=== PATIENT | female | born 1955 | race Caucasian/White ===

== ENCOUNTER 2016-03-16 00:53 | Emergency (ER) | payer MEDICARE ==
[2016-03-16] MEDS ORDERED: OXYCODONE HCL 5 MG TABLET ONE (01:19)
== END 2016-03-16 01:40 | disposition home or self-care (01) ==
LOC: ED 00:53
DX: M25.561 Pain in right knee (principal); G89.29 Other chronic pain
CPT/HCPCS: 99282; 99283; A9270

== ENCOUNTER 2016-03-18 03:14 | Emergency (ER) | payer MEDICARE ==
[2016-03-18 04:48] LABS: ALB/GLOB RATIO 1.1 (>1.0); ALBUMIN 3.3 gm/dL (3.5-5.7); CALCIUM 8.8 mg/dL (8.6-10.3)
[2016-03-18 04:49] LABS: ABSOLUTE NEUTROPHIL COUNT 5.5 K/mm3 (1.8-7.7); BASO % 0.5 % (0.2-1.0); EOS # 0.2 (0.0-0.5); EOS % 1.8 % (0.9-2.9); HEMATOCRIT 35.5 % (37.0-47.0); HEMOGLOBIN 10.9 gm/l (12.0-16.0); IMM NEUT # 0.2 K/mm3 (0-0.2); IMM NEUT% 2.2 % (0-1); LYMPH # 2.2 (1.0-4.8); LYMPH % 24.7 % (15-45); MEAN CELL VOLUME 88.1 fl (81.0-99.0); MEAN CORPUSCULAR HGB CONC 30.7 g/dl (33.0-37.0); MEAN PLATELET VOLUME 10.2 fl (7.4-10.4); MONO # 0.6 (0.0-0.8); NEUT % 63.8 % (43-75); PLATELET COUNT 223 K/mm3 (130-400); RED CELL DISTRIBUTION WIDTH 18.1 % (11.5-14.5)
[2016-03-18] MEDS ORDERED: FUROSEMIDE 40 MG/4 ML VIAL ONE (04:55)
[2016-03-18] MEDS ORDERED: FUROSEMIDE 20 MG/2 ML VIAL ONE (04:57)
--- NOTE | 2016-03-18 07:21 | RAD ---
EXAMINATION:CHEST - 2 VIEWS CLINICAL INDICATION: Difficulty breathing. Asthma. Inhalers not working. COMPARISON: 02/20/2016 FINDINGS: The cardiomediastinal silhouette is unaltered from the prior study. There is no adenopathy identified. There is no pleural effusion. Prominent bronchovascular markings are again noted. Basilar atelectasis is unchanged. The osseous structures are unremarkable for age. IMPRESSION: Stable senescent changes and basilar atelectasis with very vascular congestion. No superimposed acute process is identified in comparison to 02/20/2016.
== END 2016-03-18 06:09 | disposition home or self-care (01) ==
LOC: ED 03:14
DX: R06.00 Dyspnea, unspecified (principal); I50.9 Heart failure, unspecified; I25.10 Atherosclerotic heart disease of native coronary artery without angina pectoris; E11.9 Type 2 diabetes mellitus without complications; E03.9 Hypothyroidism, unspecified; Z79.4 Long term (current) use of insulin
CPT/HCPCS: 83880; 85379; 85025; 80053; 84484; 71020; 96375; 99283 ×2; 36415; 93005; J1940 ×2

== ENCOUNTER 2016-03-23 08:08 | Outpatient (CLI) | payer MEDICARE | END 2016-03-23 08:09 | disposition home or self-care (01) | LOC: NC 08:08 | PROVIDERS: ATTEND Nurse Practitioner Family | DX: E11.65 Type 2 diabetes mellitus with hyperglycemia (principal); Z71.3 Dietary counseling and surveillance; Z68.42 Body mass index [BMI] 45.0-49.9, adult ==

== ENCOUNTER 2016-03-29 06:04 | Emergency (ER) | payer MEDICARE ==
[2016-03-29] MEDS ORDERED: ALBUTEROL/IPRATROPIUM 2.5/0.5 MG 3 ML/EACH DOSE ONE (06:31)
== END 2016-03-29 07:01 | disposition home or self-care (01) ==
LOC: ED 06:04
DX: G47.30 Sleep apnea, unspecified (principal); R06.02 Shortness of breath; E11.65 Type 2 diabetes mellitus with hyperglycemia; E78.2 Mixed hyperlipidemia; I10 Essential (primary) hypertension; Z71.3 Dietary counseling and surveillance; Z68.42 Body mass index [BMI] 45.0-49.9, adult
CPT/HCPCS: 83880; 80048; 36415; 94640; 99283 ×2; G0109

== ENCOUNTER 2016-03-29 17:30 | Outpatient (CLI) | payer MEDICARE | END 2016-03-29 17:31 | disposition home or self-care (01) | LOC: NC 17:30 | PROVIDERS: ATTEND Nurse Practitioner Family | DX: E11.65 Type 2 diabetes mellitus with hyperglycemia (principal); Z71.3 Dietary counseling and surveillance; Z68.42 Body mass index [BMI] 45.0-49.9, adult ==

== ENCOUNTER 2016-04-03 17:03 | Emergency (ER) | payer MEDICARE | END 2016-04-03 19:44 | disposition home or self-care (01) | LOC: ED 17:03 | DX: G89.29 Other chronic pain (principal); M25.561 Pain in right knee; E66.9 Obesity, unspecified; Z86.718 Personal history of other venous thrombosis and embolism; I25.10 Atherosclerotic heart disease of native coronary artery without angina pectoris; E11.9 Type 2 diabetes mellitus without complications; I50.9 Heart failure, unspecified; E03.9 Hypothyroidism, unspecified; Z79.899 Other long term (current) drug therapy ==

== ENCOUNTER 2016-04-05 17:30 | Outpatient (CLI) | payer MEDICARE | END 2016-04-05 17:31 | disposition home or self-care (01) | LOC: NC 17:30 | PROVIDERS: ATTEND Nurse Practitioner Family | DX: E11.65 Type 2 diabetes mellitus with hyperglycemia (principal) ==

== ENCOUNTER 2016-04-12 17:30 | Outpatient (CLI) | payer MEDICARE | END 2016-04-12 17:31 | disposition home or self-care (01) | LOC: NC 17:30 | PROVIDERS: ATTEND Nurse Practitioner Family | DX: E11.65 Type 2 diabetes mellitus with hyperglycemia (principal); Z71.3 Dietary counseling and surveillance; Z68.42 Body mass index [BMI] 45.0-49.9, adult; Z79.4 Long term (current) use of insulin ==

== ENCOUNTER 2016-05-03 17:30 | Outpatient (CLI) | payer MEDICARE | END 2016-05-03 17:31 | disposition home or self-care (01) | LOC: NC 17:30 | PROVIDERS: ATTEND Internal Medicine | DX: E11.65 Type 2 diabetes mellitus with hyperglycemia (principal); Z71.3 Dietary counseling and surveillance ==

== ENCOUNTER 2016-05-31 14:39 | Emergency (ER) | payer MEDICARE ==
[2016-05-31] MEDS ORDERED: SULFAMETHOXAZOLE 800 MG/TRIMETHOPRIM 160 MG TABLET ONE (15:47)
== END 2016-05-31 16:00 | disposition home or self-care (01) ==
LOC: ED 14:39
DX: M25.462 Effusion, left knee (principal); M25.562 Pain in left knee; G89.29 Other chronic pain; I50.9 Heart failure, unspecified; I25.10 Atherosclerotic heart disease of native coronary artery without angina pectoris; E11.9 Type 2 diabetes mellitus without complications; Z79.4 Long term (current) use of insulin; Z86.718 Personal history of other venous thrombosis and embolism; Z79.01 Long term (current) use of anticoagulants
CPT/HCPCS: 87070; 99283 ×2; 20610 ×2; A9270

== ENCOUNTER 2016-06-01 09:06 | Inpatient (IN) | payer MEDICARE ==
[2016-06-01] MEDS ORDERED: FUROSEMIDE 40 MG/4 ML VIAL ONE (09:47)
[2016-06-01 10:10] LABS: ABSOLUTE NEUTROPHIL COUNT 13.3 K/mm3 (1.8-7.7); BASO % 0.2 % (0.2-1.0); EOS # 0.1 (0.0-0.5); EOS % 0.7 % (0.9-2.9); HEMATOCRIT 36.7 % (37.0-47.0); HEMOGLOBIN 11.4 gm/l (12.0-16.0); IMM NEUT # 0.1 K/mm3 (0-0.2); IMM NEUT% 0.8 % (0-1); LYMPH # 1.6 (1.0-4.8); LYMPH % 10.1 % (15-45); MEAN CELL VOLUME 88.2 fl (81.0-99.0); MEAN CORPUSCULAR HEMOGLOBIN 27.4 pg (27.0-31.0); MEAN CORPUSCULAR HGB CONC 31.1 g/dl (33.0-37.0); MEAN PLATELET VOLUME 10.4 fl (7.4-10.4); MONO # 0.9 (0.0-0.8); MONO % 5.8 % (4-12); NEUT % 82.4 % (43-75); PLATELET COUNT 229 K/mm3 (130-400)
[2016-06-01 10:24] LABS: D-DIMER 0.67 mg/L FEU (0.20-0.50); INR 1.85; PROTHROMBIN TIME 20.1 SECONDS (9.3-11.4)
[2016-06-01 10:27] LABS: ALB/GLOB RATIO 0.9 (>1.0); ALBUMIN 3.7 gm/dL (3.5-5.7); CALCIUM 9.7 mg/dL (8.6-10.3); MAGNESIUM 2.2 mg/dL (1.9-2.7)
[2016-06-01 10:28] LABS: C-REACTIVE PROTEIN 14.8 mg/dl (<1.0)
[2016-06-01] MEDS ORDERED: VANCOMYCIN HCL 1.5 G in SODIUM CHLORIDE 0.9% 500 ML IV ONE (12:30)
[2016-06-01 13:57] VITALS: BMI 45.5
--- NOTE | 2016-06-01 14:02 | RAD ---
KNEE- RIGHT 4 OR MORE VIEWS COMPARISON: Right knee 4 views, 02/16/2016 HISTORY: 60-year-old female undergoing treatment of right knee infection, status post drainage. Her legs gave out this morning. VIEWS: Right knee AP, internal rotation, external rotation, and lateral FINDINGS: Bones: No acute finding. Enthesophytes at multiple sites. No fracture. Osteophytes at the joint margins.. Joints: Severe narrowing of the medial compartment. No joint effusion. Soft tissue: No subcutaneous air or visible mass or abscess. IMPRESSION: 1. No acute finding. Severe osteoarthritis without progression. 2. Degenerative enthesopathy.
[2016-06-01] MEDS ORDERED: BLISTEX LIPSTICK 1 EACH TP PRN (15:33)
[2016-06-01] MEDS ORDERED: MENTHOL/CETYLPYRD 1 EACH LOZENGE PO PRN (15:33)
[2016-06-01] MEDS ORDERED: BISACODYL 10 MG SUP PR PRN (15:33)
[2016-06-01] MEDS ORDERED: MAGNESIUM HYDROXIDE 30 ML UDCUP PO PRN (15:33)
[2016-06-01] MEDS ORDERED: CALCIUM CARBONATE 500 MG TAB.CHEW PO PRN (15:33)
[2016-06-01] MEDS ORDERED: SODIUM CHLORIDE 0.9% 100 ML IV PRN (15:33)
[2016-06-01] MEDS ORDERED: BISACODYL 5 MG TABLET.EC PO PRN (15:33)
[2016-06-01] MEDS ORDERED: VANCOMYCIN HCL 0 G in SODIUM CHLORIDE 0.9% 250 ML IV SCH (15:45)
[2016-06-01] MEDS ORDERED: ALBUTEROL SULFATE 200 PUFFS/INH INHALER IH PRN (16:04)
--- NOTE | 2016-06-01 16:31 | RAD ---
CHEST 2 VIEWS HISTORY: Elevated ESR, knee pain. Frontal and lateral chest radiographs dated 323 7. COMPARISON: 03/18/2016 FINDINGS: FOCAL AIRSPACE OPACITY: Linear density compatible with scarring at the left lung base. PLEURAL EFFUSION: None. CARDIOMEDIASTINAL SILHOUETTE: Nonenlarged. Aortic arch calcification. PNEUMOTHORAX: None identified. OSSEOUS STRUCTURES: Mild thoracic kyphosis. Thoracic disc degeneration. IMPRESSION: No acute cardiopulmonary process noted. Left basilar scarring is evident. Thoracic spondylosis.
[2016-06-01] MEDS: WARFARIN SODIUM 1 MG TABLET PO SCH (16:52)
[2016-06-01] MEDS: METFORMIN HCL 500 MG TABLET PO SCH (16:52)
[2016-06-01 20:39] LABS: URINE BILIRUBIN NEGATIVE (NEGATIVE); URINE BLOOD NEGATIVE (NEGATIVE); URINE GLUCOSE (UA) NEGATIVE (NEGATIVE); URINE LEUKOCYTE ESTERASE NEGATIVE (NEGATIVE); URINE NITRITE NEGATIVE (NEGATIVE); URINE PROTEIN 1+ (NEGATIVE); URINE UROBILINOGEN NORMAL (0-1 mg/dl)
[2016-06-01 20:41] LABS: URINE APPEARANCE SL CLOUDY; URINE COLOR YELLOW
[2016-06-01 21:07] LABS: URINE RBC 0 /hpf; URINE WBC 0-2 /hpf
[2016-06-01 21:08] LABS: URINE AMORPHOUS SEDIMENT FEW; URINE BACTERIA 1+
[2016-06-01] MEDS: GABAPENTIN 300 MG CAPSULE PO SCH (21:18)
[2016-06-01] MEDS: POTASSIUM CHLORIDE 20 MEQ TAB.PRT.SR PO SCH (21:19)
[2016-06-01] MEDS: Magnesium Oxide 400 MG TABLET PO SCH (21:19)
[2016-06-01] MEDS: DIVALPROEX SODIUM 500 MG PO SCH (21:19)
[2016-06-01] MEDS: TRAZODONE HCL 50 MG TABLET PO SCH (21:19)
[2016-06-01] MEDS: METOPROLOL TARTRATE 50 MG TABLET PO SCH (21:20)
[2016-06-01] MEDS: FLUTICASONE/SALMETEROL 250/50 14 PUFFS/DISK IH SCH (21:20)
[2016-06-01] MEDS: SIMVASTATIN 10 MG TABLET PO SCH (21:20)
[2016-06-01] MEDS: DOCUSATE SODIUM 100 MG CAPSULE PO SCH (21:20)
[2016-06-01] MEDS: CLOTRIMAZOLE 1% 15 APPLIC/15 G CREAM TP SCH (21:21)
[2016-06-01] MEDS: INSULIN GLARGINE (DOSE) 100 UNITS/ML UNIT SUB-Q SCH (21:32)
--- NOTE | 2016-06-01 21:35 | CONS ---
Jihan FAJARDO : [id number] ORTHOPEDIC CONSULTATION DATE OF SERVICE: June 01, 2016 REASON FOR CONSULTATION: Right knee pain. HISTORY OF PRESENT ILLNESS: This is a 60-year-old female that I previously had seen in the clinic who has had when she reports as 10/10 pain without significant history of trauma that seems to flare up without significant inciting event. I have seen her in the clinic for similar complaints on several occasions. She presented to the emergency department yesterday and after a discussion with one of the orthopedic P.A.s the provider in the emergency department performed an arthrocentesis of her right knee obtaining about 1 mL of fluid and injected some lidocaine to try and give her some pain relief. She returned home and then was back in the emergency department again today and had similar complaints at this time stating that she had some pain and some concerns for redness in the knee and thought that perhaps she had an infection. Orthopedics was consulted to evaluate. The patient was seen in the emergency department and her complaints were isolated to essentially right leg pain. Some of it around the knee but not particularly related to gentle motion of the knee. She clearly indicated that she had and inability to bear weight, but that she did not feel that the knee was made more painful with a jog of motion between about 10 and 70 degrees of flexion. She did not complain of any other active musculoskeletal complaints. At this time the recommendation to the emergency department was that there was not any evidence of an active septic arthritis and that they work her up for other medical concerns given her elevated laboratories. Hospitalist was consulted and the patient was ultimately admitted to the hospital and the hospitalist once again consulted orthopedics to confirm that there was no issues with the knee. The patient was seen once more on the floor with similar findings. PAST MEDICAL/SURGICAL HISTORY: No significant changes to her past medical or surgical history, these are as documented in the H&P from the hospitalist. REVIEW OF SYSTEMS: Her review of systems today is negative for any constitutional, cardiovascular or respiratory complaints. She states that her knee has been hurting for a few days and that she is totally unable to put any weight on it. PHYSICAL EXAM: GENERAL: This is an obese female seen on the medical/surgical tran. She is seated on her chair and the knee is flexed to approximately 90 degrees. She appears comfortable. She is actively moving the knee without any evidence of significant discomfort. Of note, she has received some pain medication. EXTREMITY EXAMINATION: A close examination of the knee shows that it remains somewhat swollen which is consistent with her previous evaluation in the clinic approximately 2 months ago. She is globally tender to palpation about both knees. She does not want to put any weight on this right knee. Her range of motion is from about 10 degrees of flexion, to approximately 75 or 80 degrees of flexion, maybe even closer to 90 degrees without significant evidence of any discomfort. The knee is stable to varus and valgus stress and she has a warm and well perfused leg distally. There does appear to be some superficial cellulitis or just inflammation but she has chronic bilateral lower extremity lymphedema that often results in this appearance. RADIOGRAPHS: The patient had three views of the right knee obtained in the emergency room today which demonstrate likely effusion, tricompartmental arthritis, but no acute appearance of changes compared to her previous imaging studies most recently in February of 2016. ASSESSMENT: A 60-year-old female with increasing right knee pain like secondary to an arthritic flare who also has some elevated laboratories indicating inflammation. I do not feel that there is significant evidence to indicate that this knee is the source of her inflammatory elevation, I also do not feel that this represents a septic arthritis or that there is any surgical indication at this time. PLAN: We will continue to observe the patient while she is an inpatient. At some point from a purely knee standpoint probably needs a total knee replacement but she is medically very high risk surgical candidate and may not ever qualify to undergo that procedure. We will continue to be available for additional concerns regarding this patient during her inpatient stay and we will follow her up is previously scheduled as an outpatient. Job [id number] Cc: [facility]
--- NOTE | 2016-06-01 21:54 | HP ---
KLARISSA FAJARDO [id number] CHIEF COMPLAINT: Right knee pain. HISTORY OF PRESENT ILLNESS: The patient is a 60-year-old female with a history of diabetes who reports she has had knee pains since 2013 when she had bilateral knee surgery, and reports she has not been the same since. More recently she had a joint injection by her pain primary care sales representative, Dr. Marcos Delgado, on Sunday of this week, and she noted that she has not been able to walk since that time. She returned on Sunday and had an evaluation by Dr. Delgado at his office and was felt to not have an infection. On Sunday she had continued pain and some redness noted and presented to the ER. She had aspiration of this knee which showed only one to two segmented neutrophils, but was placed on Bactrim and Percocet. She reported that she could not ambulate and collapsed today, despite use of her walker. She called 911 and was brought here. She reports temperatures to 99.5, but no chills and no sweats. She reports the injection in her knee was a lubricant, but not a steroid, although records are still pending in that regard. PAST MEDICAL HISTORY: Remarkable for: 1. Diabetes mellitus Type-2, with elevated A1Cs noted on previous testing. Her last A1C was 10, performed in January of 2016. She has had diabetes since her 30's. 2. 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 She has had this since age 25. 3. She has had a history of chronic asthma. 4. She has had dyslipidemia. 5. Hypertension. 6. Diastolic CHF. 7. Hypothyroidism. 8. History of DVT involving her legs and arm, although records elsewhere indicate these have been pulmonary emboli. 9. Morbid obesity, with a BMI of 45. 10. A history of cognitive dysfunction, treated with Aricept which she found helpful. She attributes this to her ECT. PAST SURGICAL HISTORY: 1. She has had arthroscopy x 2 in both knees. 2. She has had a partial rotator cuff repaired laparoscopically on the left. 3. A remote history of tonsillectomy. ALLERGIES: Multiple, with: 1. Clindamycin. 2. Nonsteroidals. 3. Penicillin. 4. Tetanus. 5. Immune globulin. 6. Morphine. 7. Hydromorphone. 8. Erythromycin. MEDICATIONS: Her home medication regimen is complex, but appears to be: 1. Albuterol 2 puffs inhaled every four hours as needed. 2. Abilify 15 mg daily. 3. Bentyl 20 mg by mouth twice a day as needed. 4. Divalproex ER 1,500 mg at bedtime. 5. Aricept 10 mg daily. 6. Ferrous gluconate versus ferrous sulfate one a day. 7. Folic acid 1 mg daily. 8. Furosemide 160 mg daily. 9. Gabapentin 600 mg by mouth twice a day. 10. Glimepiride 4 mg by mouth daily. 11. NovoLog FlexPen 58 units in the morning, 10 units at noon and 36 every evening. 12. Lantus 88 units in the morning and 100 units in the evening. 13. Levothyroxine 100 mcg daily. 14. Magnesium oxide 500 mg by mouth daily. 15. Metformin 500 mg by mouth twice a day with meals. 16. Lopressor 100 mg by mouth twice a day. 17. Dulera two puffs inhaled twice a day. 18. Pantoprazole 40 mg by mouth daily. 19. Potassium chloride 20 mEq by mouth twice a day. 20. Zocor 20 mg by mouth every P.M. 21. Trazodone 150 mg by mouth at bedtime. 22. Valsartan/HCTZ 320/12.5 one by mouth daily. 23. Warfarin 2 mg on Sunday, Sunday and Sunday, and 1 mg on Sunday, Sunday, and Sunday. SOCIAL HISTORY: She lives in [place] in a house with her of 27 years. They have a stepson who is 33. No smoking and no alcohol. No marijuana and no methamphetamine. She goes to [employer]. She has a Juanita-Tzu and a Dachshund at home. FAMILY HISTORY: She is adopted. No biologic data. She has a sister with cerebral palsy. REVIEW OF SYSTEMS: HEENT - eyes have been okay. Ears okay. Nose has had some allergies, with a runny nose recently over the last month. Mouth is okay. Teeth have been okay. Neck - okay. Pulmonary - she notes she is a little bit short of breath due to her pain and has this with activity. No major change in CHF, but is somewhat less mobile. Heart - no recent complaints. She reports Dr. Waters spaced her appointments out to every six months. Stomach - she has had a little bit of nausea attributed to the pain of her knee hurting. - no dysuria and no hematuria. No vaginal discharge. No menses. Breasts - no complaints. GI - no constipation. She has had a little bit looser stools attributed to metformin. No blood in the stool. Extremities - her left arm hurts some from lifting self, and also notes some in the right shoulder as well. She has had a little bit of redness around the knee, but not severe erythema. Feet have been okay. No soreness. She does not have a history of gout. She reports her knee was injected with a gel, not a steroid, and she was given some type of muscle relaxant when she followed-up with him on Sunday. Hands have been okay, although she has had a little bit of peeling on her hands. Neurologic - no central nervous system complaints. CODE STATUS: She initially had stated that she had a form that she was working on completing as being DNR, but would accept resuscitation if recovery was thought to be good. PHYSICAL EXAMINATION: GENERAL: A nontoxic female who is hungry for lunch. VITAL SIGNS: Temperature 98.1. Pulse 99. Respirations 17. Blood pressure 98/60. Saturation 92% on room air. HEENT: Head is normocephalic, atraumatic. Eyes, pupils are small. Mild proptosis noted. Ears, tympanic membranes are normal bilaterally. Nose is normal. Mouth is unremarkable. NECK: Skin tags, but no adenopathy noted. LUNGS: Clear to auscultation bilaterally. HEART: Regular rate and rhythm, with a 2/6 systolic murmur noted. No S3 or S4 heard. ABDOMEN: Obese, nontender and nondistended. Bowel sounds are normal. No rebound and no guarding. Scattered seborrheic keratosis are noted. GENITOURINARY: Exam is deferred. BREASTS: Exam is deferred. EXTREMITIES: Legs with venous stasis discoloration circumferentially around her lower calves bilaterally. No point tenderness noted. The patient's right knee is reported to be tender generally inferior and around the patella, but the level of tenderness reported on exam is somewhat variable, and although the knee is slightly warm, it is not particularly hot, and no significant effusion is felt. Range of motion is 0-90 degrees in the right knee. There is a obdulio where the erythema was drawn yesterday, but does not appear to be any significant erythema in this area at this time. The patellar tendon feels intact and the patient is able to move her leg fairly well. The patient's ankles and feet are unremarkable, except for some onychomycosis noted. Tinea pedis and some similar peeling on the hands is noted bilaterally, but no significant cellulitis is evident. NEUROLOGIC: Grossly unremarkable, although patient has a slightly unusual affect. LABS: White count 16.2, hemoglobin 11.4 and platelets 229. Sodium 136, potassium 5.1, chloride 93, C02 of 30, BUN of 32, creatinine 1.5 and glucose 182. AST of 20 and ALT of 33. Alkaline phosphatase 88. CK is 193. Her BNP is 48. Albumin 3.7, magnesium 2.2 and bilirubin 0.3. Valproic acid is 53. Blood cultures are pending. Synovial aspiration from yesterday shows no organisms and 0-2 segmented neutrophils. Sed rate 73. CRP of 14.8. IMAGING: X-ray of the knee shows no acute changes, but severe osteoarthritis and degenerative enthesopathy. ASSESSMENT/PLAN: 1. Acute reported worsening of knee pain after injection. I discussed with Dr. Burt that the patient has had a long history of knee pain that he has seen her for. Could consider whether this represents a steroid flare versus gout versus a simple exacerbation of her chronic osteoarthritis. Aspiration from yesterday would not suggest infectious causes, but with elevated sed rate and CRP the patient has been started on vancomycin in the emergency department. I will ask Dr. Burt to follow and review with us if further antibiotics would be indicated, and will try to get a report from Dr. Delgado as to what kind of injection she had. 2. Elevated inflammatory markers. Blood culture today is pending. Source is not clear. We will be checking a urinalysis, chest x-ray and will monitor her vital signs. The patient does not appear to have sepsis at this time. 3. Diabetes mellitus Type-2 of thirty years duration, with elevated A1C on last check. Will continue on her current regimen and will need to be cautious if she has lower blood sugars here because of difference in compliance regarding insulin and diet. 4. History of bipolar disorder. She has a slightly hypomanic affect today. Will continue on her current regimen. 5. History of diastolic CHF. Her BNP appears to be good, suggesting that she is euvolemic, which appears to match her clinical appearance today at this time. 6. BMI of 45.5, certainly playing a role in her ability to ambulate safely. 7. Venous thrombosis prophylaxis. She is on Coumadin for atrial fibrillation. Will be checking INR daily. Her INR is 1.85 today. Her D-dimer is 0.67. 8. Atrial fibrillation, currently paced. Will continue on the Coumadin and reassess in the morning. Use of antibiotics may affect her INR. 9. Limited code status. This is ordered. cc: REEMA Bertrand Dr., Dr., Dr., Dr., Dr., Dr.
[2016-06-02 06:13] LABS: ABSOLUTE NEUTROPHIL COUNT 7.3 K/mm3 (1.8-7.7); BASO # 0.1 K/mm3 (0.0-0.2); BASO % 0.5 % (0.2-1.0); EOS # 0.3 (0.0-0.5); EOS % 2.3 % (0.9-2.9); HEMATOCRIT 34.8 % (37.0-47.0); HEMOGLOBIN 10.7 gm/l (12.0-16.0); IMM NEUT # 0.1 K/mm3 (0-0.2); IMM NEUT% 0.6 % (0-1); LYMPH # 2.2 (1.0-4.8); LYMPH % 20.9 % (15-45); MEAN CELL VOLUME 86.8 fl (81.0-99.0); MEAN CORPUSCULAR HEMOGLOBIN 26.7 pg (27.0-31.0); MEAN CORPUSCULAR HGB CONC 30.7 g/dl (33.0-37.0); MEAN PLATELET VOLUME 10.1 fl (7.4-10.4); MONO # 0.8 (0.0-0.8); MONO % 7.1 % (4-12); NEUT % 68.6 % (43-75); PLATELET COUNT 214 K/mm3 (130-400); RED CELL DISTRIBUTION WIDTH 15.9 % (11.5-14.5)
[2016-06-02 06:27] LABS: INR 2.05; PROTHROMBIN TIME 22.4 SECONDS (9.3-11.4)
[2016-06-02 06:32] LABS: ALB/GLOB RATIO 0.9 (>1.0); ALBUMIN 3.4 gm/dL (3.5-5.7); CALCIUM 8.9 mg/dL (8.6-10.3)
[2016-06-02] MEDS: LEVOTHYROXINE SODIUM 100 MCG TABLET PO SCH (07:15)
[2016-06-02] MEDS: INSULIN GLARGINE (DOSE) 100 UNITS/ML UNIT SUB-Q SCH ×2 (08:15→21:16)
[2016-06-02] MEDS: INSULIN ASPART (DOSE) 100 UNITS/1 ML SUB-Q SCH ×3 (08:23→17:26)
[2016-06-02] MEDS: GABAPENTIN 300 MG CAPSULE PO SCH ×2 (08:24→21:14)
[2016-06-02] MEDS: Magnesium Oxide 400 MG TABLET PO SCH ×2 (08:26→21:15)
[2016-06-02] MEDS: PANTOPRAZOLE 40 MG TABLET DR PO SCH (08:26)
[2016-06-02] MEDS: FLUTICASONE/SALMETEROL 250/50 14 PUFFS/DISK IH SCH ×2 (08:26→21:16)
[2016-06-02] MEDS: METOPROLOL TARTRATE 50 MG TABLET PO SCH ×2 (08:26→21:15)
[2016-06-02] MEDS: DONEPEZIL HCL 5 MG TABLET PO SCH (08:26)
[2016-06-02] MEDS: METFORMIN HCL 500 MG TABLET PO SCH (08:27)
[2016-06-02] MEDS: GLIMEPIRIDE 4 MG TABLET PO SCH (08:27)
[2016-06-02] MEDS: FERROUS GLUCONATE (38 Fe) 324 MG TABLET PO SCH (08:27)
[2016-06-02] MEDS: POTASSIUM CHLORIDE 20 MEQ TAB.PRT.SR PO SCH (08:28)
[2016-06-02] MEDS: ARIPIPRAZOLE 5 MG TABLET PO SCH (08:28)
[2016-06-02] MEDS: DOCUSATE SODIUM 100 MG CAPSULE PO SCH ×2 (08:28→21:14)
[2016-06-02] MEDS: FOLIC ACID 1 MG TABLET PO SCH (08:28)
[2016-06-02] MEDS: CLOTRIMAZOLE 1% 15 APPLIC/15 G CREAM TP SCH ×2 (08:34→21:16)
[2016-06-02] MEDS ORDERED: VALSARTAN 80 MG TABLET PO SCH (09:00)
[2016-06-02] MEDS ORDERED: FOLIC ACID 1 MG PO SCH (09:00)
[2016-06-02] MEDS ORDERED: HYDROCHLOROTHIAZIDE 12.5 MG CAP PO SCH (09:00)
[2016-06-02] MEDS ORDERED: MAGNESIUM OXIDE 500 MG PO SCH (09:00)
[2016-06-02] MEDS ORDERED: FUROSEMIDE 80 MG TABLET PO SCH (09:00)
[2016-06-02] MEDS: VANCOMYCIN HCL 1.25 G in SODIUM CHLORIDE 0.9% 250 ML IV SCH (12:34)
[2016-06-02] MEDS ORDERED: SODIUM CHLORIDE 0.9% 250 ML IV SCH (14:30)
--- NOTE | 2016-06-02 14:32 | PDOC43 ---
- Subjective Chief Complaint: Right Knee pain Subjective: Reports Pain Tolerable (but patient is unsteady on her feet), Denies Fever - Objective Vital Signs Temperature 97.9 F 06/02/16 12:35 Pulse Rate 74 06/02/16 12:35 Respiratory Rate 18 06/02/16 12:35 Blood Pressure 93/51 06/02/16 12:35 O2 Saturation by Pulse Oximetry 96 06/02/16 12:35 Oxygen Delivery Method Room Air Oxygen Flow Rate 0 Intake and Output 06/01/16 06/02/16 06/03/16 06:59 06:59 06:59 Intake Total 950 Output Total 900 Balance 50 General: Alert, Oriented x3, Cooperative, No Acute Distress HEENT: Mucous membr. moist/pink Lungs: Clear to Auscultation Bilaterally Cardiovascular: Regular Rate and Rhythm Abdomen: Soft, Normal Bowel Sounds, Non-Distended, No Tenderness Extremities: Full ROM, Edema (trace to one plus) Skin: Erythema (over right lower leg is regressing from marked bounderies) Laboratory 06/02/16 06:00 06/02/16 06:00 06/02/16 06:00 RBC 4.01 L MCH 26.7 L MCHC 30.7 L RDW 15.9 H PT 22.4 H BUN 42 H Estimated GFR 31 L Albumin 3.4 L Globulin 3.6 H Albumin/Globulin Ratio 0.9 L Current Medications: Current meds reviewed in EMR. 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 (2) Acute kidney failure Qualifiers: Acute renal failure type: unspecified Qualifier Code: (N17.9) Acute kidney failure, unspecified Status: AcuteAssessment/Plan: unclear etiology, BP low-hold BP meds and Lasix, fluid bolus (3) Diabetes Qualifiers: Diabetes mellitus type: type 2 Diabetes mellitus complication status: with kidney complications Diabetes mellitus complication detail: with chronic kidney disease Diabetes mellitus 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 Chronic kidney disease stage: stage 2 (mild) Qualifier Code: ( E11.22) Type 2 diabetes mellitus with diabetic chronic kidney disease Status : AcuteAssessment/Plan: stable on meds (4) Bipolar affective disorder Qualifiers: Active/Remission status: in remission of unspecified degree Qualifier Code: (F31.70) Bipolar disorder, currently in remission, most recent episode unspecified Status: ChronicAssessment/Plan: stable on meds (5) CHF (congestive heart failure) Qualifiers: Congestive heart failure type: diastolic Congestive heart failure chronicity: acute on chronic Qualifier Code: (I50.33) Acute on chronic diastolic (congestive) heart failure Status: AcuteAssessment/Plan: stable, appears dry (6) History of pulmonary embolism Status: ChronicAssessment/Plan: On halfway coumadin (7) Obesity, morbid, BMI 40.0-49.9 Status: ChronicAssessment/Plan: complicates care VTE Prophylaxis: coumadin Disposition: unclear, await Cx results
[2016-06-02] MEDS ORDERED: WARFARIN SODIUM 2 MG TABLET PO SCH (16:00)
[2016-06-02] MEDS: TRAZODONE HCL 50 MG TABLET PO SCH (21:13)
[2016-06-02] MEDS: SIMVASTATIN 10 MG TABLET PO SCH (21:15)
[2016-06-02] MEDS: DIVALPROEX SODIUM 500 MG PO SCH (21:15)
[2016-06-03 06:40] LABS: ABSOLUTE NEUTROPHIL COUNT 7.5 K/mm3 (1.8-7.7); BASO % 0.4 % (0.2-1.0); EOS # 0.4 (0.0-0.5); EOS % 3.7 % (0.9-2.9); HEMATOCRIT 33.9 % (37.0-47.0); HEMOGLOBIN 10.4 gm/l (12.0-16.0); IMM NEUT # 0.1 K/mm3 (0-0.2); IMM NEUT% 0.9 % (0-1); LYMPH # 1.3 (1.0-4.8); LYMPH % 12.7 % (15-45); MEAN CELL VOLUME 87.4 fl (81.0-99.0); MEAN CORPUSCULAR HEMOGLOBIN 26.8 pg (27.0-31.0); MEAN CORPUSCULAR HGB CONC 30.7 g/dl (33.0-37.0); MEAN PLATELET VOLUME 10.4 fl (7.4-10.4); MONO # 0.6 (0.0-0.8); MONO % 6.5 % (4-12); NEUT % 75.8 % (43-75); PLATELET COUNT 242 K/mm3 (130-400); RED CELL DISTRIBUTION WIDTH 15.6 % (11.5-14.5)
[2016-06-03 06:52] LABS: INR 2.02
[2016-06-03 07:01] LABS: CALCIUM 9.2 mg/dL (8.6-10.3)
[2016-06-03] MEDS: LEVOTHYROXINE SODIUM 100 MCG TABLET PO SCH (08:02)
[2016-06-03] MEDS: ACETAMINOPHEN 325 MG TABLET PO PRN ×2 (08:02→23:20)
--- NOTE | 2016-06-03 09:36 | RAD ---
CHEST - 2 VIEWS COMPARISON: Chest 2 views, 06/01/2016 HISTORY: Tachycardia and hypoxia FINDINGS: Views: Frontal and lateral chest Lungs: Increased interstitial markings. Heart and vessels: Normal Trachea and bronchi: Normal Mediastinum and mike: Normal Costophrenic sulci: Normal Chest wall and bones: Normal. Upper abdomen: Normal. IMPRESSION: Increased interstitial markings. Chronic interstitial lung disease versus interstitial pulmonary edema.
[2016-06-03] MEDS: PANTOPRAZOLE 40 MG TABLET DR PO SCH (10:08)
[2016-06-03] MEDS: FERROUS GLUCONATE (38 Fe) 324 MG TABLET PO SCH (10:08)
[2016-06-03] MEDS: GLIMEPIRIDE 4 MG TABLET PO SCH (10:08)
[2016-06-03] MEDS: METOPROLOL TARTRATE 50 MG TABLET PO SCH ×2 (10:08→21:43)
[2016-06-03] MEDS: FOLIC ACID 1 MG TABLET PO SCH (10:09)
[2016-06-03] MEDS: GABAPENTIN 300 MG CAPSULE PO SCH ×2 (10:09→21:41)
[2016-06-03] MEDS: Magnesium Oxide 400 MG TABLET PO SCH ×2 (10:10→21:42)
[2016-06-03] MEDS: DOCUSATE SODIUM 100 MG CAPSULE PO SCH ×2 (10:10→22:09)
[2016-06-03] MEDS: DONEPEZIL HCL 5 MG TABLET PO SCH (10:10)
[2016-06-03] MEDS: INSULIN GLARGINE (DOSE) 100 UNITS/ML UNIT SUB-Q SCH ×2 (10:13→21:49)
[2016-06-03] MEDS: INSULIN ASPART (DOSE) 100 UNITS/1 ML SUB-Q SCH ×3 (10:13→21:45)
[2016-06-03] MEDS: ARIPIPRAZOLE 5 MG TABLET PO SCH (10:18)
[2016-06-03] MEDS: CLOTRIMAZOLE 1% 15 APPLIC/15 G CREAM TP SCH ×2 (10:18→23:58)
[2016-06-03] MEDS: VANCOMYCIN HCL 1.25 G in SODIUM CHLORIDE 0.9% 250 ML IV SCH (12:18)
[2016-06-03] MEDS: FLUTICASONE/SALMETEROL 250/50 14 PUFFS/DISK IH SCH ×2 (16:06→21:45)
[2016-06-03] MEDS: WARFARIN SODIUM 1 MG TABLET PO SCH (16:07)
[2016-06-03] MEDS ORDERED: IV START KIT ONE (18:50)
[2016-06-03] MEDS: TRAZODONE HCL 50 MG TABLET PO SCH (21:43)
[2016-06-03] MEDS: SIMVASTATIN 10 MG TABLET PO SCH (21:45)
[2016-06-03] MEDS: DIVALPROEX SODIUM 500 MG PO SCH (22:10)
[2016-06-03] MEDS: INSULIN ASPART (DOSE) 100 UNITS/1 ML SUB-Q PRN (22:12)
[2016-06-04] MEDS ORDERED: ALBUTEROL/IPRATROPIUM 2.5/0.5 MG 3 ML/EACH DOSE NEB PRN (00:27)
[2016-06-04] MEDS ORDERED: ALBUTEROL/IPRATROPIUM 2.5/0.5 MG 3 ML/EACH DOSE ONE (00:33)
[2016-06-04] MEDS: ACETAMINOPHEN 325 MG TABLET PO PRN (06:14)
[2016-06-04 06:56] LABS: INR 1.88; PROTHROMBIN TIME 20.4 SECONDS (9.3-11.4)
[2016-06-04] MEDS: LEVOTHYROXINE SODIUM 100 MCG TABLET PO SCH (07:53)
[2016-06-04] MEDS: PANTOPRAZOLE 40 MG TABLET DR PO SCH (08:30)
[2016-06-04] MEDS: DONEPEZIL HCL 5 MG TABLET PO SCH (08:32)
[2016-06-04] MEDS: FERROUS GLUCONATE (38 Fe) 324 MG TABLET PO SCH (08:33)
[2016-06-04] MEDS: Magnesium Oxide 400 MG TABLET PO SCH (08:33)
[2016-06-04] MEDS: FOLIC ACID 1 MG TABLET PO SCH (08:33)
[2016-06-04] MEDS: GLIMEPIRIDE 4 MG TABLET PO SCH (08:33)
[2016-06-04] MEDS: GABAPENTIN 300 MG CAPSULE PO SCH (08:33)
[2016-06-04] MEDS: DOCUSATE SODIUM 100 MG CAPSULE PO SCH (08:34)
[2016-06-04] MEDS: METOPROLOL TARTRATE 50 MG TABLET PO SCH (08:34)
[2016-06-04] MEDS: ARIPIPRAZOLE 5 MG TABLET PO SCH (08:34)
[2016-06-04] MEDS: FLUTICASONE/SALMETEROL 250/50 14 PUFFS/DISK IH SCH (08:35)
[2016-06-04] MEDS: CLOTRIMAZOLE 1% 15 APPLIC/15 G CREAM TP SCH (08:35)
[2016-06-04] MEDS: INSULIN GLARGINE (DOSE) 100 UNITS/ML UNIT SUB-Q SCH (08:52)
[2016-06-04] MEDS: INSULIN ASPART (DOSE) 100 UNITS/1 ML SUB-Q SCH ×3 (08:52→18:37)
[2016-06-04 09:15] LABS: CALCIUM 9.2 mg/dL (8.6-10.3)
[2016-06-04] MEDS ORDERED: LORAZEPAM 2 MG/ML 1ML SDV IV PRN (11:15)
[2016-06-04] MEDS ORDERED: FLUTICASONE/SALMETEROL 250/50 14 PUFFS/DISK IH SCH (11:15)
[2016-06-04] MEDS ORDERED: LIDOCAINE 1% (PRES FREE) 5 ML VIAL PF PRN (11:15)
[2016-06-04] MEDS: INSULIN ASPART (DOSE) 100 UNITS/1 ML SUB-Q PRN ×2 (12:16→18:38)
[2016-06-04] MEDS ORDERED: VANCOMYCIN HCL 2.25 G in SODIUM CHLORIDE 0.9% 500 ML IV SCH (13:00)
--- NOTE | 2016-06-04 13:08 | PDOC43 ---
- Subjective Chief Complaint: Right Knee pain Subjective: Reports Pain Tolerable, Reports Tolerating Diet Well, Reports Shortness of Breath (noted this am) - Objective Vital Signs Temperature 97.7 F 06/03/16 08:00 Pulse Rate 123 06/03/16 08:00 Respiratory Rate 22 06/03/16 08:00 Blood Pressure 125/60 06/03/16 08:00 O2 Saturation by Pulse Oximetry 89 06/03/16 08:00 Oxygen Delivery Method Room Air Oxygen Flow Rate 0 Intake and Output 06/02/16 06/03/16 06/04/16 06:59 06:59 06:59 Intake Total 950 1605 Output Total 900 1800 Balance 50 -195 General: Alert, Oriented x3, Cooperative, No Acute Distress HEENT: Mucous membr. moist/pink Lungs: Diminished at Bases (minimal wheezing) Cardiovascular: Other (reg tachy) Abdomen: Soft, Normal Bowel Sounds, Non-Distended, No Tenderness Extremities: Edema (unchanged, redness in right leg stable, no fluctuance, increased warmth), Normal Pulses Skin: Intact, Erythema (as above) Laboratory 06/03/16 06:00 06/03/16 06:00 06/03/16 06:00 RBC 3.88 L MCH 26.8 L MCHC 30.7 L RDW 15.6 H PT 22.0 H BUN 46 H Estimated GFR 42 L Current Medications: Current meds reviewed in EMR. 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 (2) Acute kidney failure Qualifiers: Acute renal failure type: unspecified Qualifier Code: (N17.9) Acute kidney failure, unspecified Status: AcuteAssessment/Plan: improving unclear etiology, BP low-hold BP meds and Lasix (3) Diabetes Qualifiers: Diabetes mellitus type: type 2 Diabetes mellitus complication status: with kidney complications Diabetes mellitus complication detail: with chronic kidney disease 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 Chronic kidney disease stage: stage 2 (mild) Qualifier Code: ( E11.22) Type 2 diabetes mellitus with diabetic chronic kidney disease Status : AcuteAssessment/Plan: stable on meds (4) Bipolar affective disorder Qualifiers: Active/Remission status: in remission of unspecified degree Qualifier Code: (F31.70) Bipolar disorder, currently in remission, most recent episode unspecified Status: ChronicAssessment/Plan: stable on meds (5) CHF (congestive heart failure) Qualifiers: Congestive heart failure type: diastolic Congestive heart failure chronicity: acute on chronic Qualifier Code: (I50.33) Acute on chronic diastolic (congestive) heart failure Status: AcuteAssessment/Plan: stable, appears dry (6) History of pulmonary embolism Status: ChronicAssessment/Plan: On shelter coumadin (7) Obesity, morbid, BMI 40.0-49.9 Status: ChronicAssessment/Plan: complicates care (8) Hypoxia Status: AcuteAssessment/Plan: associated with tachycardia, suspect atalectesis-CXR VTE Prophylaxis: coumadin Disposition: home in 1-2 days, await Cx results, but anticipate PICC with IV Vanco for 10 days after discharge
[2016-06-04 15:57] VITALS: BP 138/75
[2016-06-04] MEDS: WARFARIN SODIUM 1 MG TABLET PO SCH (17:55)
--- NOTE | 2016-06-04 17:57 | RAD ---
CXR FOR PLACEMENT/LINE or TUBE COMPARISON: Chest 2 views, 06/03/2016 HISTORY: Check PICC position. FINDINGS: Views: Frontal chest. Support equipment: A PICC was inserted in the right arm and the tip projects into the right atrium Lungs: Normal. Heart and vessels: Normal Trachea and bronchi: Normal Mediastinum and mike: Normal Costophrenic sulci: Normal Chest wall: Normal. IMPRESSION: 1. The tip of the PICC is about 3 cm inferior to the cavoatrial junction level. The results were discussed with Dralene, the PICC nurse, 06/04/2016 at 17:52
[2016-06-04] MEDS ORDERED: Sodium Chloride 0.9% 30 ML ONE (18:32)
[2016-06-05] MEDS ORDERED: VANCOMYCIN HCL 2.25 G in SODIUM CHLORIDE 0.9% 500 ML IV SCH (13:30)
--- NOTE | 2016-06-05 15:34 | DS ---
KLARISSA FAJARDO [id number] DATE OF ADMISSION: June 01, 2016 DATE OF DISCHARGE: June 04, 2016 DISCHARGE DIAGNOSES: 1. Bacterial cellulitis involving the right lower extremity. 2. Severe right knee pain associated with osteoarthritis. 3. Adult onset diabetes on fpc insulin therapy. 4. Chronic essential hypertension. 5. History of deep venous thrombosis in the past on chronic anticoagulation with Coumadin. 6. Morbid obesity with a body mass index of 45. 7. History of bipolar disorder. 8. History of chronic diastolic congestive heart failure. 9. Acute kidney injury. 10. Severe sepsis. PROCEDURES: 1. Echocardiography on June 02, 2016. 2. PICC placement on June 04, 2016. SUMMARY OF ADMISSION AND HOSPITAL COURSE: The patient is a 60-year-old female with medical problems as listed above whose chronic knee pain due to osteoarthritis and recently developing right lower extremity pain, difficulty with ambulation due to the pain. Initially she was evaluated by her pain hospice spiritual care coordinator and was not felt to have an acute infection but because of continued pain and some redness developing in her right lower extremity, she presented to the emergency department. She had an aspiration of the knee which did not appear to be infected but was started on Bactrim and Percocet due to concerns about cellulitis. However, despite the medication, her symptoms progressed and she developed increased weakness and actually had a fall at home despite using her walker and was brought to the emergency department at [facility]. She was found to have a low grade fever of 99.5 in the emergency department. She had a low blood pressure of 98/60. White blood cell count was elevated at 16,000. Erythrocyte sedimentation rate was elevated at 73. C-reactive protein was elevated at 14.8. She was referred to the hospitalist service for admission after blood cultures were obtained. She was started on vancomycin IV. Her initial creatinine on admission was elevated at 1.5 and increased to 1.7 the following day. Patient's hospital course was complicated by worsening renal function on the first night with a creatinine increased to 1.7. The patient had persistently low blood pressures compared to her baseline and her antihypertensive therapy was held as was her Lasix. Her blood cultures remained negative including the synovial fluid cultures from May 31, 2016. Patient's erythema in her right leg did significantly improve during her stay as did the increased warmth noted in her lower extremities. Patient's leukocytosis also resolved, and she experienced improvement in her lower extremity pain. Her renal function also improved such that by the day of discharge her creatinine was down to 1.0. Patient's blood pressure, however, remained low for her and at discharge was 138/75. She resumed her oral Lasix therapy on the day of discharge but her other antihypertensive therapy, including Diovan/HCT and Lopressor were both held on the day of discharge. Patient had an echocardiogram performed on June 02, 2016 which showed a left ventricular ejection fraction of 60 to 65%, grade 2 diastolic dysfunction, normal right ventricular size and function. Patient had a peripherally inserted central catheter placed on June 04, 2016. By June 04, 2016, the patient was felt to be medically stable for discharge. PHYSICAL EXAM: VITAL SIGNS: Vitals at discharge showed a temperature of 97.9, pulse 80, blood pressure is 138/75, respirations 18, oxygen saturation 91% on room air. Body mass index is 46. Weight is 117.8 kilograms. GENERAL: This is an obese female in no acute distress. HEENT: Is unremarkable. LUNGS: Are clear to auscultation bilaterally. CARDIOVASCULAR: Exam reveals a regular rate and rhythm without a murmur. ABDOMEN: Is obese, soft, nontender, nondistended with positive bowel sounds. EXTREMITIES: Show chronic venous stasis skin changes in her lower extremities with diffuse erythema in both lower extremities. However, the area of cellulitis as previously marked extending toward the knee on the right leg has resolved, and there is no increased warmth over the lower extremities any more. There is no fluctuance, and she has full range of motion in both joints without effusions. LABORATORY STUDIES: Included a CBC on June 03, 2016 showing a white count of 9.9, hemoglobin of 10.4, and platelet count of 242,000. Chemistry profile on June 04, 2016 showed a sodium 138, potassium 4.9, BUN 33, creatinine 1.0, glucose 145. DISPOSITION: Home DISCHARGE CONDITION: Good. DISCHARGE MEDICATIONS: 1. She is going to hold her Diovan/HCT and Lopressor until she follows up with Dr. Buenrostro, her primary care provider, for reevaluation of her blood pressure. 2. She is going to continue on vancomycin 2.25 g IV every 24 hours administered by PICC line through the [facility] daily for ten more days. 3. She is prescribed lotrimin 1% topical cream to apply to the skin folds twice daily for rash. 4. She is going to continue with Aricept 10 mg daily. 5. Potassium chloride 20 mEq twice daily. 6. Coumadin 1 mg orally on Sunday, Sunday, and Sunday, and 2 mg orally on Sunday, Sunday, and Sunday. 7. Albuterol HFA inhaler two puffs every four hours as needed for wheezing. 8. Abilify 15 mg daily. 9. Bentyl 20 mg twice daily as needed for spasms. 10. Divalproex 1500 mg at bedtime. 11. Iron gluconate 134 mg daily. 12. Folic acid 1 mg daily. 13. Glimepiride 4 mg daily. 14. Magnesium oxide 500 mg daily. 15. Protonix 40 mg daily. 16. Trazodone 150 mg at bedtime. 17. Lasix 160 mg daily. 18. Neurontin 600 mg twice daily 19. Levothroid 100 mcg orally daily. 20. Metformin 500 mg twice daily with meals. 21. Dulera 200 mcg/5 mcg two puffs inhaled twice daily. 22. Zocor 20 mg at bedtime. 23. Lantus insulin 88 units subcutaneous daily, 100 units subcutaneous every evening. 24. NovoLog insulin 58 units subcutaneous before breakfast, 10 units subcutaneous before lunch and 36 units subcutaneous before dinner. FOLLOWUP: 1. She will follow up tomorrow at the [facility] for her vancomycin dosing. They will also be monitoring her anticoagulant dosage. 2. She has followup scheduled with Leann Wetzel on June 13, 2016 at 11:00. DISCHARGE DIET: Diabetic diet. ALLERGIES: 1. CLINDAMYCIN. 2. NONSTEROIDALS. 3. PENICILLIN. 4. TETANUS. 5. MORPHINE. 6. ERYTHROMYCIN. 7. DILAUDID. Cc: Lloyd Buenrostro M.D. Leann Wetzel D.O.
== END 2016-06-04 20:00 | disposition home or self-care (01) | DRG 602 ==
LOC: ED 09:06 → MS 11:58 → OBSVTOIN 15:33 → MS 06-04 16:28
PROVIDERS: ADMIT Family Medicine; ATTEND Family Medicine
PROC: 02HV33Z Insertion of Infusion Device into Superior Vena Cava, Percutaneous Approach (ICD-10-PCS; principal; 2016-06-03)
DX: L03.115 Cellulitis of right lower limb (principal); R65.20 Severe sepsis without septic shock; I50.33 Acute on chronic diastolic (congestive) heart failure; Z68.42 Body mass index [BMI] 45.0-49.9, adult; N17.9 Acute kidney failure, unspecified; I13.0 Hypertensive heart and chronic kidney disease with heart failure and stage 1 through stage 4 chronic kidney disease, or unspecified chronic kidney disease; B96.89 Other specified bacterial agents as the cause of diseases classified elsewhere; M17.11 Unilateral primary osteoarthritis, right knee; E11.9 Type 2 diabetes mellitus without complications; Z79.4 Long term (current) use of insulin; Z86.718 Personal history of other venous thrombosis and embolism; E66.01 Morbid (severe) obesity due to excess calories; F31.9 Bipolar disorder, unspecified; I11.0 Hypertensive heart disease with heart failure; Z79.84 Long term (current) use of oral hypoglycemic drugs; E11.22 Type 2 diabetes mellitus with diabetic chronic kidney disease; N18.2 Chronic kidney disease, stage 2 (mild); I48.91 Unspecified atrial fibrillation

== ENCOUNTER 2016-06-06 23:45 | Emergency (ER) | payer MEDICARE ==
[2016-06-07 02:02] LABS: ABSOLUTE NEUTROPHIL COUNT 8.8 K/mm3 (1.8-7.7); BASO # 0.1 K/mm3 (0.0-0.2); BASO % 0.5 % (0.2-1.0); EOS # 0.4 (0.0-0.5); EOS % 3.4 % (0.9-2.9); HEMATOCRIT 32.6 % (37.0-47.0); HEMOGLOBIN 10.1 gm/l (12.0-16.0); IMM NEUT # 0.1 K/mm3 (0-0.2); IMM NEUT% 1.1 % (0-1); LYMPH # 2.1 (1.0-4.8); MEAN CELL VOLUME 87.2 fl (81.0-99.0); MEAN PLATELET VOLUME 9.9 fl (7.4-10.4); MONO # 0.8 (0.0-0.8); MONO % 6.4 % (4-12); NEUT % 71.6 % (43-75); PLATELET COUNT 259 K/mm3 (130-400); RED CELL DISTRIBUTION WIDTH 15.4 % (11.5-14.5)
[2016-06-07 02:08] LABS: INR 1.33; PROTHROMBIN TIME 14.2 SECONDS (9.3-11.4)
[2016-06-07 02:50] LABS: URINE BILIRUBIN NEGATIVE (NEGATIVE); URINE BLOOD NEGATIVE (NEGATIVE); URINE GLUCOSE (UA) NEGATIVE (NEGATIVE); URINE LEUKOCYTE ESTERASE NEGATIVE (NEGATIVE); URINE NITRITE NEGATIVE (NEGATIVE); URINE PROTEIN TRACE (NEGATIVE); URINE UROBILINOGEN NORMAL (0-1 mg/dl)
[2016-06-07 02:51] LABS: URINE APPEARANCE CLEAR; URINE COLOR YELLOW
[2016-06-07 02:58] LABS: ALBUMIN 3.4 gm/dL (3.5-5.7); CALCIUM 9.3 mg/dL (8.6-10.3); MAGNESIUM 1.8 mg/dL (1.9-2.7)
[2016-06-07] MEDS ORDERED: FUROSEMIDE 40 MG/4 ML VIAL ONE (04:05)
[2016-06-07] MEDS: IOPAMIDOL 370 (76%) 100 ML VIAL IV ONE (04:50)
--- NOTE | 2016-06-07 07:39 | RAD ---
History: Dyspnea. Comparison: 06/04/2016. Technique: 2 views Findings: There is an indwelling right-sided PIC catheter with its tip located at the atrial caval junction. Linear left basilar atelectasis or scarring is present. The heart size is appropriate. No effusion or pneumothorax is seen. The hilar and mediastinal structures are intact. Impression: 1. An indwelling right-sided PIC catheter with its tip located at the atrial caval junction. No pneumothorax is observed. 2. Linear left basilar atelectasis or scarring.
--- NOTE | 2016-06-07 07:40 | US ---
DUPLX SCAN VEIN EXT UNI RT History: Right leg swelling. Dyspnea. Findings: Ultrasonography of the right lower extremity was performed, with grayscale color and Doppler technique utilizing evaluation of the lower extremity. There is adequate compressibility of the deep venous system without current findings of deep venous thrombosis. Normal responses are seen to augmentation and Valsalva maneuvers. Normal respiratory variation is observed as well. The examination is mildly limited with the proximal and mid calf veins poorly delineated due to edema and patient body habitus. Impression: 1. A right lower extremity ultrasound which currently appears negative, with no current findings of deep venous thrombosis observed. The examination is limited however as stated above. The findings were called to the emergency room at 0316 hours, 06/07/2016, by [facility].
--- NOTE | 2016-06-07 07:41 | CT ---
INDICATION: Shortness of breath. History of DVT. COMPARISON: 09/29/2015 TECHNIQUE: Helical scan mode CT of the Thorax with 2 mm collimated images were obtained after uneventful intravenous contrast administration of 80 of Isovue-370. Sagittal and coronal reformations with high resolution lung algorithm images were also created at this time. Maximal intensity projection images and 3-D volumetric sequences were created at a separate, dedicated workstation. DLP: 1093.5 FINDINGS: There are no pulmonary arterial filling defects. Scattered dependent and atelectatic changes are present. The areas of groundglass density is seen on prior study of at interval resolution. Pleural tag at the right anterior base, within the middle lobe is noted again on image 58. This is unchanged from prior study, measuring approximately 4 mm. A few other scattered sub-3 mm nodules are present. No pleural effusion. The central airways are widely patent. There is no axillary, mediastinal or hilar adenopathy. The heart and great vessels opacify normally. Diffuse fatty infiltration to the liver with sparing in the gallbladder fossa is present. Remainder the visualized abdomen is unremarkable. Review of bone windows demonstrates no osteoblastic or lytic lesions. Degenerative changes of the spine are noted. IMPRESSION: 1. Negative for pulmonary embolism. Other incidental findings as above. Preliminary report was provided by [facility] at approximately 0527 hours on 06/07/2016.
== END 2016-06-07 06:10 | disposition home or self-care (01) ==
LOC: ED 23:45
DX: R06.02 Shortness of breath (principal); R60.0 Localized edema; I50.9 Heart failure, unspecified; I25.10 Atherosclerotic heart disease of native coronary artery without angina pectoris; L03.90 Cellulitis, unspecified; E11.9 Type 2 diabetes mellitus without complications; Z79.4 Long term (current) use of insulin; Z86.718 Personal history of other venous thrombosis and embolism; Z79.01 Long term (current) use of anticoagulants

== ENCOUNTER → 2016-06-15 | Emergency (ER) | payer MEDICARE ==
[~2016-06-15] MED LIST: METHOCARBAMOL 750 MG TABLET ONE
--- NOTE | 2016-06-15 19:24 | RAD ---
HISTORY: Low back pain status post fall yesterday COMPARISON: 01/17/2016 Findings: AP and lateral views of the lumbar spine with AP spot film of the lumbo-sacral junction are obtained. The development and bony structures are normal. There is no fracture, dislocation or destructive lesion. Mild levo curvature of the spine is present with associated degenerative changes on the right. The vertebral body heights are well-preserved. Loss of intervertebral disc height is present at L3-4 down. Moderate facet sclerosis and hypertrophy is present at L4-5 and L5-S1. Mild facet disease is noted at L3-4. Overall this appears similar to prior study. The sacrum and sacroiliac joints are normal. IMPRESSION: Stable degenerative changes without fracture or dislocation.
== END ==
LOC: ED 17:09
DX: S39.012A Strain of muscle, fascia and tendon of lower back, initial encounter (principal); I50.9 Heart failure, unspecified; I25.10 Atherosclerotic heart disease of native coronary artery without angina pectoris; E11.9 Type 2 diabetes mellitus without complications; Z79.4 Long term (current) use of insulin; Z86.718 Personal history of other venous thrombosis and embolism; Z79.01 Long term (current) use of anticoagulants; W01.10XA Fall on same level from slipping, tripping and stumbling with subsequent striking against unspecified object, initial encounter; Y92.009 Unspecified place in unspecified non-institutional (private) residence as the place of occurrence of the external cause